=== PATIENT | female | born 1990 | race Caucasian/White ===

== ENCOUNTER 2017-02-26 | Emergency (ER) | payer OTHER ==
[~2017-02-26] VITALS: Ht 177.8 cm; Wt 75.0 kg
[2017-02-26 00:02] VITALS: BP 138/78; PULSE 86; RESP 20; TEMP 97.7; O2SAT 99
--- NOTE | 2017-02-26 00:41 | PD ---
HPI Chief Complaint: Back/ Neck Pain or Injury Time Seen by Provider: 00:16 Travel History International Travel<30 days: No Contact w/Intl Traveler<30days: No Traveled to known affect area: No History of Present Illness HPI 27-year-old white female presents to emergency Department with complaints of back pain. She states that she's had back pain for many years on and off. She reports an injury at work 2 weeks ago. She states that she was climbing up and down a ladder carrying 5 gallon buckets of paint. She states that she does not feel significant pain at the time of the injury but later the next morning she had severe pain in her back and had difficulty getting out of bed. She went to the emergency department at [facility] and had a CAT scan of her back which showed no fracture but had degenerative disease and possible disc disease. They advised her to follow up with an orthopedist which she did. She saw the orthopedist to start her on Naprosyn and Neurontin. He advised her to follow-up with an outpatient MRI for possible additional procedures. She states that she does not have money to pay for MRI and felt she could come to the ER today and have that done. She states that the pain is worse in the morning when she gets up but is better when she is on her feet at work. She states the pain later today becomes more severe again. She has some relief taking her Neurontin and Naprosyn. The pain is localized to her left lower back with radiation to her left leg. She denies any acute bowel or bladder changes. She denies any focal numbness, tingling or weakness. [facility] Past Medical History Narrative Medical Chronic back pain with left sciatica Immunizations Current: Yes Tetanus Vaccination: Unknown Influenza Vaccination: No ?: Not LMP: 02/25/17 Past Surgical History Surgical History: No Previous Surgery Social History Alcohol Use: No Tobacco Use: Yes Substance Use: No Allergies-Medications (Allergen,Severity, Reaction): Coded Allergies: No Known Allergies (Verified Allergy, Unknown, 02/26/17) Reported Meds & Prescriptions Reported Meds & Active Scripts Active Robaxin (Methocarbamol) 750 Mg Tab 1,500 Mg PO TID 7 Days Zofran Odt (Ondansetron Odt) 4 Mg Tab 4 Mg SL Q6HR PRN Lortab (Hydrocodone-Acetaminophen) 5-325 Mg Tab 1 Tab PO Q4H PRN Review of Systems General / Constitutional: No: Fever Eyes: No: Visual changes HENT: No: Headaches Cardiovascular: No: Chest Pain or Discomfort Respiratory: No: Shortness of Breath Gastrointestinal: No: Abdominal Pain Genitourinary: No: Dysuria Musculoskeletal: Positive: Arthralgias, Limited ROM, Cramping, Pain Skin: No Rash Neurologic: No: Weakness Psychiatric: No: Depression Endocrine: No: Polydipsia Hematologic/Lymphatic: No: Easy Bruising Physical Exam Narrative GENERAL: Well-developed, well-nourished in no apparent distress. Nontoxic appearing. HEAD: Normocephalic, atraumatic. EYES: Pupils equal round and reactive. Extraocular motions intact. No scleral icterus. No injection or drainage. ENT: Nose clear. Throat without erythema, tonsillar hypertrophy or exudate. Uvula midline. Airway patent. NECK: Trachea midline. Supple, nontender, moves head freely. No central bony tenderness or spasm. CARDIOVASCULAR: Regular rate and rhythm without murmurs, gallops, or rubs. RESPIRATORY: Clear to auscultation. Breath sounds equal bilaterally. No wheezes , rales, or rhonchi. GASTROINTESTINAL: Abdomen soft, non-tender, nondistended. No hepato-splenomegaly , or palpable masses. No guarding. EXTREMITIES: No clubbing, cyanosis, or edema. No joint tenderness. BACK: No central bony tenderness to palpation of dorsal lumbar spine. She has left paralumbar tenderness. She has a positive straight-leg raise on the left. No saddle anesthesia. No gross spasm. Deep tendon reflexes are 3+ bilaterally. Without deformity. No flank tenderness. NEUROLOGICAL: Awake, alert and oriented x 3 .Cranial nerves grossly intact. Motor and sensory grossly within normal limits. Normal speech. Data Data Last Documented VS Vital Signs Date Time Temp Pulse Resp B/P (MAP) Pulse Ox O2 Delivery O2 Flow Rate FiO2 02/26/17 00:02 97.7 86 20 138/78 (98) 99 Room Air Orders Orders Ondansetron Odt (Zofran Odt) (02/26/17 02:15) Morphine Inj (Morphine Inj) (02/26/17 02:15) Cyclobenzaprine (Flexeril) (02/26/17 02:15) Ed Discharge Order (02/26/17 02:08) MDM Medical Decision Making Medical Screen Exam Complete: Yes Emergency Medical Condition: Yes Medical Record Reviewed: Yes Interpretation(s) I reviewed the patient's CAT scan which she has brought the report. Differential Diagnosis MDM: High Differential diagnoses: AAA,Fracture, sprain, strain, HNP, nerve or vascular injury Narrative Course I've explained to the patient that we do not do not emergent MRIs in the ER. I have given the patient an opportunity to be in [facility] no but she states that she would like to stay get pain relief. Patient given morphine 8 mg IM, Zofran 4 mg by mouth and Flexeril 10 mg by mouth. This is back pain with sciatica Diagnosis Primary Impression: Acute low back pain with left-sided sciatica Qualified Codes: M54.42 - Lumbago with sciatica, left side Patient Instructions: General Instructions, Narcotic given in the ED Departure Forms: Tests/Procedures, Work Release Special Instructions: No work 3 days. Additional Instructions: Rest. Ice for the next 3 days followed by heat . Continue your medications. Lortab for severe pain. Zofran for nausea. Robaxin for muscle spasms. Follow-up with your orthopedist this week. Return to the ER for emergencies. Med/Other Pt SpecificInfo: Prescription(s) given Scripts Methocarbamol (Robaxin) 750 Mg Tab 1500 MG PO TID for Muscle Spasm for 7 Days, TAB 0 Refills Prov: Todd Jewell MD 02/26/17 Ondansetron Odt (Zofran Odt) 4 Mg Tab 4 MG SL Q6HR Y for Nausea/Vomiting, #12 TAB 0 Refills Prov: Todd Jewell MD 02/26/17 Hydrocodone-Acetaminophen (Lortab) 5-325 Mg Tab 1 TAB PO Q4H Y for PAIN, #20 TAB 0 Refills Prov: Todd Jewell MD 02/26/17 Disposition: 01 DISCHARGE HOME Condition: Stable Denzel Armstrong Feb 26, 2017 00:41
[2017-02-26] MEDS ORDERED: HYDR-3533 PO ×2 (02:06)
[2017-02-26] MEDS ORDERED: ZOFR4TAB3 SL ×2 (02:06)
[2017-02-26] MEDS ORDERED: ROBA750T PO ×2 (02:06)
[2017-02-26] MEDS ORDERED: ONDANSETRON ODT 4 MG TAB PO ONE ×2 (02:15)
[2017-02-26] MEDS ORDERED: MORPHINE SULFATE 8 MG/ML INJ IM ONE ×2 (02:15)
[2017-02-26] MEDS ORDERED: CYCLOBENZAPRINE HCL 10 MG TAB PO ONE ×2 (02:15)
== END 2017-02-26 03:19 | disposition home or self-care (01) ==
LOC: NEPD
DX: M54.42 Lumbago with sciatica, left side (principal); Z72.0 Tobacco use
CPT/HCPCS: 96372; 99284; J2270